=== PATIENT | male | born 1980 | race Hispanic/Latino ===

== ENCOUNTER 2020-02-26 01:58 | Emergency (ER) | payer MEDICAID ==
[2020-02-26 02:10] VITALS: BP 119/83
--- NOTE | 2020-02-26 03:29 | XRay Report ---
CHEST PA AND LATERAL VIEWS INDICATION: chest pain, cough. COMPARISON: None. FINDINGS: Support devices: None. Heart: Within normal limits. Lungs/Pleura: No acute pulmonary or pleural findings. IMPRESSION: 1. No acute findings. Signer Name: Alcon Puri MD Signed: 02/26/2020 3:24 AM Workstation Name: [id number]
[2020-02-26] MEDS ORDERED: IBUPROFEN 600 MG TAB PO ONE (05:17)
[2020-02-26] MEDS ORDERED: predniSONE 20 MG TAB PO ONE (05:17)
--- NOTE | 2020-02-26 05:21 | Emergency Department Report ---
ED General Adult HPI - General Chief complaint: Dyspnea/Respdistress Stated complaint: SHORT OF BREATH Source: patient, EMS Mode of arrival: Ambulatory Limitations: No Limitations - History of Present Illness Initial comments: Patient is a 39-year-old white male with a history of chronic drug abuse and chronic back pain who presents to the ED with complaint of acute onset persi stent pleuritic chest wall pain with deep inhalation and shortness of breath as well as persistent dry cough for the last 2 days. Patient states that the pain is worse with inhalation or cough. Patient denies fever, chills, nausea, vomiting, abdominal pain, diaphoresis, dizziness, syncope, sore throat, nasal and sinus congestion, headache, traumatic injury or heavy lifting and fall MD Complaint: Pleuritic chest wall pain; persistent dry cough and shortness of breath -: Sudden, days(s) (2) Location: chest Radiation: non-radiation Severity scale (0 -10): 4 Quality: aching, sharp Consistency: constant Improves with: none Worsens with: other (Cough or deep inhalation) Associated Symptoms: denies other symptoms, chest pain (Pleuritic), cough, shortness of breath. denies: diaphoresis, fever/chills, headaches, loss of appetite, malaise, nausea/vomiting, rash, seizure, syncope, weakness Treatments Prior to Arrival: none - Related Data Home Medications Medication Instructions Recorded Confirmed Last Taken ALPRAZolam [Xanax TAB] 2 mg PO BID 06/09/16 06/09/16 Unknown Dextroamphetamine/Amphetamine 20 mg PO BID 06/09/16 06/09/16 Unknown [Adderall] Venlafaxine HCl [Effexor Xr] 150 mg PO DAILY 06/09/16 06/09/16 Unknown Previous Rx's Medication Instructions Recorded Last Taken Type Albuterol Sulfate [Proventil Hfa] 1 - 2 puff IH Q6H PRN #1 hfa.aer.ad 02/26/20 Unknown Rx Azithromycin [Zithromax Z-JULIEN] 250 mg PO DAILY #6 tablet 02/26/20 Unknown Rx Benzonatate [Tessalon Perles] 100 mg PO Q8HR #30 capsule 02/26/20 Unknown Rx Ibuprofen [Motrin] 600 mg PO Q8H PRN #24 tablet 02/26/20 Unknown Rx predniSONE [Deltasone] 40 mg PO QDAY #10 tab 02/26/20 Unknown Rx Allergies Allergy/AdvReac Type Severity Reaction Status Date / Time No Known Allergies Allergy Verified 06/08/16 20:08 ED Review of Systems ROS: Stated complaint: SHORT OF BREATH Other details as noted in HPI Constitutional: denies: chills, fever Eyes: denies: eye pain, eye discharge, vision change ENT: denies: ear pain, throat pain Respiratory: cough, shortness of breath. denies: wheezing Cardiovascular: chest pain (Pleuritic chest pain). denies: palpitations Endocrine: no symptoms reported Gastrointestinal: denies: abdominal pain, nausea, diarrhea Genitourinary: denies: urgency, dysuria Musculoskeletal: denies: back pain, joint swelling, arthralgia Skin: denies: rash, lesions Neurological: denies: headache, weakness, paresthesias Psychiatric: denies: anxiety, depression Hematological/Lymphatic: denies: easy bleeding, easy bruising ED Past Medical Hx - Past Medical History Previous Medical History?: Yes Hx Psychiatric Treatment: Yes (drug abuse) Additional medical history: Back pain - Surgical History Past Surgical History?: Yes Additional Surgical History: Left anterior cruciate ligament repair, spinal fusion L2 through L5 - Social History Smoking Status: Current Every Day Smoker Substance Use Type: Prescribed - Medications Home Medications: Home Medications Medication Instructions Recorded Confirmed Last Taken Type ALPRAZolam [Xanax TAB] 2 mg PO BID 06/09/16 06/09/16 Unknown History Dextroamphetamine/Amphetamine 20 mg PO BID 06/09/16 06/09/16 Unknown History [Adderall] Venlafaxine HCl [Effexor Xr] 150 mg PO DAILY 06/09/16 06/09/16 Unknown History Albuterol Sulfate [Proventil Hfa] 1 - 2 puff IH Q6H PRN #1 hfa.aer.ad 02/26/20 Unknown Rx Azithromycin [Zithromax Z-JULIEN] 250 mg PO DAILY #6 tablet 02/26/20 Unknown Rx Benzonatate [Tessalon Perles] 100 mg PO Q8HR #30 capsule 02/26/20 Unknown Rx Ibuprofen [Motrin] 600 mg PO Q8H PRN #24 tablet 02/26/20 Unknown Rx predniSONE [Deltasone] 40 mg PO QDAY #10 tab 02/26/20 Unknown Rx ED Physical Exam - General Limitations: No Limitations General appearance: alert, in no apparent distress - Head Head exam: Present: atraumatic, normocephalic, normal inspection - Eye Eye exam: Present: normal appearance, PERRL, EOMI Pupils: Present: normal accommodation - ENT ENT exam: Present: normal exam, normal orophraynx, mucous membranes moist, TM's normal bilaterally, normal external ear exam - Neck Neck exam: Present: normal inspection, full ROM - Respiratory Respiratory exam: Present: normal lung sounds bilaterally, chest wall tenderness (Palpable reproducible diffuse chest wall tenderness). Absent: respiratory distress, wheezes, rales, rhonchi, stridor, accessory muscle use, decreased breath sounds, prolonged expiratory - Cardiovascular Cardiovascular Exam: Present: regular rate, normal rhythm, normal heart sounds. Absent: systolic murmur, diastolic murmur, rubs, gallop - GI/Abdominal GI/Abdominal exam: Present: soft, normal bowel sounds. Absent: tenderness, hyperactive bowel sounds - Extremities Exam Extremities exam: Present: normal inspection, full ROM, normal capillary refill - Back Exam Back exam: Present: normal inspection, full ROM. Absent: tenderness, CVA tenderness (R), CVA tenderness (L), muscle spasm, vertebral tenderness - Neurological Exam Neurological exam: Present: alert, oriented X3, CN II-XII intact, normal gait, reflexes normal - Psychiatric Psychiatric exam: Present: normal affect, normal mood - Skin Skin exam: Present: warm, dry, intact, normal color. Absent: rash ED Course Vital Signs 02/26/20 02:00 Temperature 98.7 F Pulse Rate 97 H Respiratory 18 Rate Blood Pressure 119/83 O2 Sat by Pulse 98 Oximetry ED Medical Decision Making - Radiology Data Radiology results: report reviewed, image reviewed Findings [facility] [address] [place] [address] XRay Report Signed Patient: JOY BA MR#: [id number] : 1980 Acct:[id number] Age/Sex: 39 / M ADM Date: 02/26/20 Loc: ED Attending Dr: Ordering Physician: SATNAM MONTES MD Date of Service: 02/26/20 Procedure(s): XR chest routine 2V Accession Number(s): [id number] cc: ED MD SIMON Fluoro Time In Minutes: CHEST PA AND LATERAL VIEWS INDICATION: chest pain, cough. COMPARISON: None. FINDINGS: Support devices: None. Heart: Within normal limits. Lungs/Pleura: No acute pulmonary or pleural findings. IMPRESSION: 1. No acute findings. Signer Name: Alcon Puri MD Signed: 02/26/2020 3:24 AM Workstation Name: [id number] Transcribed By: CHANDRIKA Dictated By: Alcon Puri MD Electronically Authenticated By: Alcon Puri MD Signed Date/Time: 02/26/20323 DD/ 3 TD/TT: - Medical Decision Making This is a 39-year-old white male with a history of chronic drug abuse and chronic back pain who presents to the ED with complaint of acute onset persistent pleuritic chest wall pain with deep inhalation and shortness of breath as well as persistent dry cough for the last 2 days. Patient states that the pain is worse with inhalation or cough. In the ED, patient is alert and oriented x3 and is not in any distress with normal vital signs. Patient was treated for pain in the ED. Chest x-ray shows no acute cardiopulmonary abnormalities or pneumonitis. On reevaluation, patient's pain is well controlled medication. Patient will discharge home on medications and advised to follow-up with his primary care physician in 5 to 7 days for reevaluation or return to the ED immediately if symptoms get worse. - Differential Diagnosis Bronchitis; pneumonia; pleurisy; URI; reactive airway disease; COVID-19 Critical care attestation.: If time is entered above; I have spent that time in minutes in the direct care of this critically ill patient, excluding procedure time. ED Disposition Clinical Impression: Pleuritic chest pain Acute bronchitis Qualifiers: Bronchitis organism: other organism Qualified Code(s): J20.8 - Acute bronchitis due to other specified organisms Disposition: DC-01 TO HOME OR SELFCARE Is pt being admited?: No Does the pt Need Aspirin: No Condition: Stable Instructions: Acute Bronchitis (ED), Chest Pain (ED), Pleurisy (ED) Additional Instructions: Chest x-ray shows no acute cardiopulmonary abnormalities or pneumonitis. Therefore take medications with food, drink plenty of fluids and follow-up with your primary care physician in 5 to 7 days for reevaluation. Return to the ED immediately if symptoms get worse. Prescriptions: predniSONE [Deltasone] 40 mg PO QDAY #10 tab Ibuprofen [Motrin] 600 mg PO Q8H PRN #24 tablet PRN Reason: Pain Albuterol Sulfate [Proventil Hfa] 1 - 2 puff IH Q6H PRN #1 hfa.aer.ad PRN Reason: Dyspnea Benzonatate [Tessalon Perles] 100 mg PO Q8HR #30 capsule Azithromycin [Zithromax Z-JULIEN] 250 mg PO DAILY #6 tablet Referrals: [facility] [Outside] - 3-5 Days Time of Disposition: 05:22 Print Language: LATVIAN
== END 2020-02-26 05:30 | disposition home or self-care (01) ==
LOC: ED 01:58
DX: J20.9 Acute bronchitis, unspecified (principal); R07.89 Other chest pain; F17.200 Nicotine dependence, unspecified, uncomplicated; Z79.899 Other long term (current) drug therapy; Z98.890 Other specified postprocedural states
CPT/HCPCS: 71046; 99283; J7512